=== PATIENT | male | born 1940 | race Caucasian/White ===

== ENCOUNTER → 2017-05-06 | Outpatient (CLI) | payer BC ==
[~2017-05-06] MED LIST: ASPEC81 PO; ATEN-173 PO; ENAL5TAB83 PO; GLC500 PO; PRLSR20 PO; SIMV40TA2 PO
[2017-05-06 10:04] LABS: ALT/SGPT 35 U/L (12-78); AST/SGOT 17 U/L (15-37); BLOOD UREA NITROGEN 15 mg/dl (7-18); BUN/CREATININE RATIO 15.5 (10-20); CARBON DIOXIDE 28 mmol/L (21-32); CHLORIDE 105 mmol/L (98-107); CREATININE 0.96 mg/dl (0.60-1.40); GLUCOSE 149 mg/dl (70-99); POTASSIUM 4.4 mmol/L (3.5-5.1); SODIUM 137 mmol/L (136-145)
[2017-05-06 10:07] LABS: ALB/GLOB RATIO 1.1 (0.9-2); ALKALINE PHOSPHATASE 67 U/L (45-117)
[2017-05-06 10:10] LABS: ESTIMATED AVERAGE GLUCOSE 146 mg/dl; HA1C FLAG Normal (Normal)
== END | disposition home or self-care (01) ==
LOC: C.LAB1850 07:53
PROVIDERS: ATTEND Internal Medicine
DX: E11.9 Type 2 diabetes mellitus without complications (principal)

== ENCOUNTER → 2017-11-11 | Outpatient (CLI) | payer BC ==
[2017-11-11 09:43] LABS: BASO % 0.3 %; BASO ABS # 0.02 K/uL (0-0.2); EOS % 1.5 %; HEMATOCRIT 48.4 % (42-52); IG# 0.09 K/uL (0.00-0.02); LYMPH % 17.2 %; LYMPH ABS # 1.11 K/uL (1.2-3.4); MEAN CELL VOLUME 93.6 fL (80-100); MEAN CORPUSCULAR HEMOGLOBIN 32.9 pg (25-34); MEAN CORPUSCULAR HGB CONC 35.1 g/dl (32-36); MEAN PLATELET VOLUME 10.8 fL (7.4-10.4); MONO % 9.1 %; MONO ABS # 0.59 K/uL (0.11-0.59); NEUT % 70.5 %; NEUT ABS # 4.55 K/uL (1.4-6.5); PLATELET COUNT 195 K/uL (130-400); RED CELL DISTRIBUTION WIDTH CV 13.5 % (11.5-14.5); RED CELL DISTRIBUTION WIDTH SD 46.5 fL (36.4-46.3); WHITE BLOOD COUNT 6.46 K/uL (4.8-10.8)
[2017-11-11 09:54] LABS: HEMOGLOBIN A1C 6.9 % (4.5-5.6)
[2017-11-11 10:15] LABS: ALBUMIN 3.8 gm/dl (3.4-5.0); ALKALINE PHOSPHATASE 65 U/L (45-117); ALT/SGPT 33 U/L (12-78); AST/SGOT 16 U/L (15-37); BLOOD UREA NITROGEN 16 mg/dl (7-18); CALCIUM 8.6 mg/dl (8.5-10.1); CARBON DIOXIDE 25 mmol/L (21-32); CHOLESTEROL 184 mg/dl (0-200); CREATININE 1.05 mg/dl (0.60-1.40); GLUCOSE 153 mg/dl (70-99); LDL CHOLESTEROL CALCULATED 114 mg/dl; POTASSIUM 4.2 mmol/L (3.5-5.1); SODIUM 135 mmol/L (136-145); TOTAL PROTEIN 7.2 gm/dl (6.4-8.2)
== END | disposition home or self-care (01) ==
LOC: C.LAB1850 07:47
PROVIDERS: ATTEND Internal Medicine
DX: E11.9 Type 2 diabetes mellitus without complications (principal); I10 Essential (primary) hypertension

== ENCOUNTER 2022-07-01 18:43 | Observation (INO) ==
[2022-07-01 19:07] LABS: Basophils # (auto) 0.04 K/uL (0-0.2); Basophils % (auto) 0.5 %; Eosinophils # (auto) 0.08 K/uL (0-0.50); Eosinophils % (auto) 0.9 %; Hematocrit (blood only) 48.7 % (40.1-51.0); Hemoglobin 17.3 g/dl (14.0-18.0); Immature Granulocytes % (auto) 1.1 %; Lymphocytes # (auto) 1.87 K/uL (1.2-3.4); Lymphocytes % (auto) 21.2 %; Mean Corpuscular Hemoglobin 33.3 pg (25.0-34.0); Mean Corpuscular Hgb Conc 35.5 g/dL (32.0-36.0); Mean Corpuscular Volume 93.7 fL (80.0-100.0); Mean Platelet Volume 10.2 fL (9.4-12.4); Monocytes # (auto) 0.65 K/uL (0.24-0.82); Monocytes % (auto) 7.4 %; Neutrophils % (auto) 68.9 %; Platelet Count 220 K/uL (130-400); RDW Coefficient of Variation 13.2 % (11.5-14.5); RDW Standard Deviation 45.3 fL (36.4-46.3); White Blood Count 8.84 K/ul (4.8-10.8)
[2022-07-01 19:17] LABS: Partial Thromboplastin Ratio 0.9; Partial Thromboplastin Time 25.1 Seconds (21.0-31.0); Prothrombin Time 10.7 Seconds (9.0-12.0)
[2022-07-01 19:29] LABS: Albumin Globulin Ratio 1.8 (0.9-2); Albumin Level 4.4 gm/dl (3.4-5.0); BUN Creatinine Ratio 17.4 (10-20); Bilirubin,Total 0.8 mg/dl (0.2-1.0); Calcium 9.7 mg/dl (8.5-10.1); Creatinine Clr Calc Pharmacy 52.3 ml/min; Est GFR (African American) 73.9 ml/min; Est GFR (Non-African American) 63.8 ml/min; Globulin 2.5 gm/dl (2.5-4.0); Potassium 4.3 mmol/L (3.5-5.1); Total Protein 6.9 gm/dl (6.0-8.3)
[2022-07-01 19:34] LABS: Troponin I High Sensitivity 3.3 pg/ml (0-20)
--- NOTE | 2022-07-01 19:50 | XRay Report ---
XR chest 1V portable CLINICAL HISTORY: Chest pain, nonspecific TECHNIQUE: Single frontal radiograph of the chest was obtained. Comparison: Comparison is made to chest radiograph 11/17/1999 FINDINGS: No lines and tubes are seen. Calcified aortic knob is seen. The lungs are clear. No evidence of pleur al effusion or pneumothorax. IMPRESSION: No acute chest disease. ACT 112: Negative or not required by law. Electronically signed by: Julien Kelly M.D. 07/01/2022 7:47 PM
[2022-07-01] MEDS ORDERED: LORazepam 1 MG TAB SL STA (20:47)
[2022-07-01] MEDS ORDERED: hydrALAZINE HCL 20 MG/ML VIAL IV ONE (21:48)
[2022-07-01 22:45] LABS: Influenza A virus by PCR Negative (Neg); Influenza B virus by PCR Negative (Neg); RSV by PCR Negative (Neg); SARS CoV2 RNA(COVID-19) Ceph NEGATIVE (Negative)
--- NOTE | 2022-07-01 23:01 | History & Physical Report ---
Date of Service July 01, 2022 Assessment & Plan (1) Substernal chest pain: Plan: Symptoms are atypical for angina, unlikely ACS; occurred shortly after eating and feels similar to severe previous heartburn episodes - may be due to uncontrolled GERD. Additionally was hypertensive to 181/124 and tachycardic to 110s - appears consistent with his increased anxiety which he always has in medical settings, rather than true hypertensive urgency/emergency. - EKG without ST/T changes, hsTroponin negative x2, currently asymptomatic - admit for observation on telemetry - check EKG and hsTroponin in AM - PRN EKG for chest pain - NPO at midnight for stress ECHO in AM (2) Acid reflux disease: Plan: As above, suspect uncontrolled GERD as primary cause of chest tightness. - Protonix 40mg PO daily while hospitalized - recommend increase PPI to daily at least for 4-6 weeks after discharge - defer to primary team/PCP (3) Hypertension: Plan: BP 181/124 on presentation, improved to 126/100 after Hydralazine 5mg IV x1. No other symptoms of urgency/emergency. Suspect uncontrolled HTN largely in setting of increased anxiety. - monitor closely, PRN Hydralazine ordered for SBP >180 and/or DBP >110 (4) Sinus tachycardia: Plan: Presented in sinus tachycardia 110s, improved to 90s after Ativan. Suspect 2/2 to increased anxiety in medical settings. - monitor on telemetry as stated above - repeat EKG in AM as stated above (5) Type 2 diabetes mellitus: Plan: A1c 7.0 in 04/2022. Hold Metformin, utilize SSI while hospitalized. (6) Hyperlipidemia: Plan: Diet-controlled. LDL 118 in 04/2022 but was reportedly non-fasting test. Check fasting lipids in AM Plan FEN/GI: NPO DVT Prophylaxis: Lovenox SQ Code Status: full code Disposition: med/tele History of Present Illness Chief Complaint: chest pain Primary Care Provider: Nina Moya MD Peter Arnold is an 82yo male with PMHx significant for T2DM (A1c 7.0 in 04/2022), HTN, HLD, GERD, and depression/anxiety, who presented to [facility] ED on 07/01 for acute-onset substernal chest tightness and neck tightness, with associated lightheadedness, that started at 15:30, ~20 minutes after eating tuna salad and crackers. Symptoms occurred at rest, lasted 15-20 minutes and then completely resolved without intervention. Patient does have h/o GERD and takes Omeprazole 20mg every 3-4 days when he feels heartburn symptoms; used to take it daily but started weaning down ~1 year ago. Patient is very physically active and often goes on 3 mile walks - never gets chest pain. Had a cardiac stress test "years ago" that was normal. He used to measure BP at home and usually got 150s-160s/90s-100s but stopped measuring BP ~1 year ago. Of note patient reports that he often gets anxious when going to the doctor and felt very anxious upon arrival in our ED. Denies h/o IL or heart disease. Denies family h/o IL/heart disease. He is a never smoker and denies alcohol/drug use. In the ED the patient was hypertensive to 181/124 and tachycardic to 114. EKG sinus tachycardia with PACs and without definite ST/T abnormalities. hsTroponin negative x2 (2 hours apart). Labs significant for BSG 217; otherwise CBC/CMP WNL. COVID/flu/RSV negative. CXR unremarkable. Patient received Hydralazine 5mg IV x1 and Ativan 0.5mg SL x1. He remains without chest pain, and his BP improved to 126/100 after Hydralazine. He only feels slightly anxious now after the Ativan. Allergies Allergy/AdvReac Type Severity Reaction Status Date / Time Penicillins Allergy Mild rash Verified 07/01/22 22:52 amoxicillin AdvReac Rash Verified 07/01/22 22:52 Home Medications Medication Instructions Recorded Confirmed Type cholecalciferol (vitamin D3) 50 4,000 units PO DAILY 03/23/19 07/01/22 History mcg (2,000 unit) capsule omeprazole 20 mg capsule,delayed 20 mg PO .QOD 04/09/21 07/01/22 History release blood sugar diagnostic (Feliciano #100 ea 05/06/22 07/01/22 Rx Lite Strips) enalapril maleate 20 mg tablet 20 mg PO DAILY #90 tabs 05/06/22 07/01/22 Rx metformin 500 mg tablet 500 mg PO BID #180 tabs 05/06/22 07/01/22 Rx ihenijwlyynx-uzs-nihjh acid-vit 1 tab PO DAILY 05/06/22 07/01/22 History K-lycop 400 mcg-20 mcg-370 mcg tablet (Men's 50 Plus Multivitamin) Past Med/Surg History Medical History Acid reflux disease Depression with anxiety Facet syndrome, lumbar Hyperlipidemia Inguinal hernia Reactive hypertension Tiredness Type 2 diabetes mellitus Umbilical hernia Vitamin D deficiency Surgical History No history of previous surgery Family History Mother Alzheimer disease Diabetes Brother Emphysema, unspecified Father Myocardial infarction Denies family history of Ovarian cancer Prostate cancer Breast cancer Colorectal cancer Social History (Updated 05/06/22 @ 09:39 by Margarita Obrien LPN) Smoking Status: Never smoker Second Hand Exposure: No; Hx Alcohol Use: Yes Alcohol Intake Frequency: Monthly or Less Hx Substance Use: No Preferred Language: Irish Communication Ability: Effective Visual Impairment: No Limitations Hearing Ability: Normal Ticketing Clerk Required: No Beliefs That Will Affect Care: None marital status: / Current Living Situation: Alone current occupational status: retired How many Children do You have: 1 other: 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 NAD. Cooperative. HEENT: Atraumatic, normocephalic. Pulm: CTAB A&P. -wheezes, -rales, -rhonchi. Symmetrical chest rise. No increase work of breathing. No respiratory distress. Cardiac: RRR, -mrg. Radial pulses intact and symmetrical. No LE edema. Chest: no tenderness to palpation of chest wall Abdominal: soft, non-tender, non-distended, BS x 4 Skin: warm, dry, no rash Results & Data Results & Data ([facility]) Vital Signs (Past 12 Hours) Vital Signs Pulse Pulse Resp BP BP Pulse Ox O2 Del Method 07/01/22 20:57 76 19 95 Room Air 07/01/22 20:52 78 20 181/124 H 95 Room Air 07/01/22 20:52 95 Room Air 07/01/22 18:45 114 H 20 191/97 H 95 Room Air Supervising Physician Co-Signing Physician Notes Attending addendum: I have physically seen this patient, have supervised the medical residents activities, and agree with the H&P unless as otherwise noted. Assessment and Plan: Substernal chest pain/sinus tachycardia/hypertension- The patient will be admitted to telemetry for serial cardiac enzymes, serial EKG's, cardiac rhythm monitoring and a 2-D echocardiogram with Dopplers. Continue enalapril Lopressor 5 mg IV every 4 hours. Systolic blood pressure greater than 160 Diabetes mellitus- Hold metformin Placed on Accu-Cheks before meals and at bedtime with NovoLog coverage per scale Check hemoglobin A1c Remaining orders and notations as noted Resident Activity Tracking Resident Involvement: Resident Care Provided Care Provided: Adult Hospital Medicine (1) Hypertension Hypertension type: primary hypertension Qualified Code(s): I10 - Essential (primary) hypertension
[2022-07-02] MEDS ORDERED: GLUCOSE 40% GEL 15 GM TUBE PO PRN (00:45)
[2022-07-02] MEDS ORDERED: GLUCAGON FOR INJ 1 MG VIAL SQ PRN (00:45)
[2022-07-02] MEDS ORDERED: CARBOHYDRATES FOR HYPOGLYCEMIA PO PRN (00:45)
[2022-07-02] MEDS ORDERED: DEXTROSE 50% 50 ML SYRINGE IV PRN (00:45)
[2022-07-02] MEDS ORDERED: ONDANSETRON INJ 2 MG/ML 2 ML VIAL IV PRN (00:45)
[2022-07-02] MEDS ORDERED: hydrALAZINE HCL 20 MG/ML VIAL IV PRN (00:45)
[2022-07-02] MEDS ORDERED: GLUCOSE 10 TAB/TUBE PO PRN (00:45)
[2022-07-02 05:17] LABS: BUN Creatinine Ratio 18.4 (10-20); Calcium 9.2 mg/dl (8.5-10.1); Chol HDL Ratio 5.5 (0-5); Creatinine Clr Calc Pharmacy 65.5 ml/min; Est GFR (African American) 94.5 ml/min; Est GFR (Non-African American) 81.5 ml/min; Magnesium 2.2 mg/dl (1.7-2.4); Potassium 4.1 mmol/L (3.5-5.1)
[2022-07-02] MEDS: ACETAMINOPHEN 500 MG TAB PO PRN ×2 (06:10→14:33)
[2022-07-02] MEDS ORDERED: ENOXAPARIN INJ 40 MG/0.4 ML SYR SQ SCH (09:00)
[2022-07-02] MEDS ORDERED: PANTOprazole 40 MG TAB PO SCH (09:00)
[2022-07-02] MEDS ORDERED: ENALAPRIL MALEATE 10 MG TAB PO SCH (09:00)
[2022-07-02] MEDS: INSULIN ASPART PER UNIT SC SCH ×2 (10:05→13:47)
--- NOTE | 2022-07-02 14:57 | XCELERA ---
[id number]
--- NOTE | 2022-07-02 17:11 | Discharge Summary ---
Discharge Summary Date of Service July 02, 2022 Admission HPI Per Admitting Provider Peter Arnold is an 82yo male with PMHx significant for T2DM (A1c 7.0 in 04/2022), HTN, HLD, GERD, and depression/anxiety, who presented to [facility] ED on 07/01 for acute-onset substernal chest tightness and neck tightness, with associated lightheadedness, that started at 15:30, ~20 minutes after eating tuna salad and crackers. Symptoms occurred at rest, lasted 15-20 minutes and then completely resolved without intervention. Patient does have h/o GERD and takes Omeprazole 20mg every 3-4 days when he feels heartburn symptoms; used to take it daily but started weaning down ~1 year ago. Patient is very physically active and often goes on 3 mile walks - never gets chest pain. Had a cardiac stress test "years ago" that was normal. He used to measure BP at home and usually got 150s-160s/90s-100s but stopped measuring BP ~1 year ago. Of note patient reports that he often gets anxious when going to the doctor and felt very anxious upon arrival in our ED. Denies h/o AL or heart disease. Denies family h/o AL/heart disease. He is a never smoker and denies alcohol/drug use. In the ED the patient was hypertensive to 181/124 and tachycardic to 114. EKG sinus tachycardia with PACs and without definite ST/T abnormalities. hsTroponin negative x2 (2 hours apart). Labs significant for BSG 217; otherwise CBC/CMP WNL. COVID/flu/RSV negative. CXR unremarkable. Patient received Hydralazine 5mg IV x1 and Ativan 0.5mg SL x1. He remains without chest pain, and his BP improved to 126/100 after Hydralazine. He only feels slightly anxious now after the Ativan. Admission Exam Per Admitting Provider General: A&Ox3. NAD. Cooperative. HEENT: Atraumatic, normocephalic. Pulm: CTAB A&P. -wheezes, -rales, -rhonchi. Symmetrical chest rise. No increase work of breathing. No respiratory distress. Cardiac: RRR, -mrg. Radial pulses intact and symmetrical. No LE edema. Chest: no tenderness to palpation of chest wall Abdominal: soft, non-tender, non-distended, BS x 4 Skin: warm, dry, no rash Principal Dx & Hospital Course #1 = Principal Diagnosis (1) Substernal chest pain: 82 yo M presented for substernal chest pain and admitted for cardiac evaluation and observation. Chest pain: Presented with substernal chest pain, atypical in nature with differential including GERD. Troponin trend negative, EKG without evidence of ST/T wave changes. Stress echo today normal. Has not been taking PPI daily, advised taking daily for the next 4 weeks or so and following up with PCP. No chest pain on my interview today. No evidence of ACS, patient discharged to home. (2) Acid reflux disease: see above Continue daily omeprazole (3) Type 2 diabetes mellitus: Continue metformin. (4) Hyperlipidemia: Cotninue statin (5) Hypertension: Continue enalapril. Plan home with self care Discharge Exam Constitutional WD/WN, vitals as above Respiratory normal respiratory effort, lungs clear to auscultation Cardiovascular RRR, no murmur, no edema Gastrointestinal (Abdomen) normal bowel sounds, soft, nontender, no hepatosplenomegaly Updated Medication List Medication Instructions Recorded Confirmed Type cholecalciferol (vitamin D3) 50 4,000 units PO DAILY 03/23/19 07/01/22 History mcg (2,000 unit) capsule omeprazole 20 mg capsule,delayed 20 mg PO .QOD 04/09/21 07/01/22 History release blood sugar diagnostic (FreeStyle #100 ea 05/06/22 07/01/22 Rx Lite Strips) enalapril maleate 20 mg tablet 20 mg PO DAILY #90 tabs 05/06/22 07/01/22 Rx metformin 500 mg tablet 500 mg PO BID #180 tabs 05/06/22 07/01/22 Rx okeqmzfovyem-con-qcspw acid-vit 1 tab PO DAILY 05/06/22 07/01/22 History K-lycop 400 mcg-20 mcg-370 mcg tablet (Men's 50 Plus Multivitamin) Hospital Stay Data Consultations 07/01/22 22:34 ED Decision to Admit Stat Discharge Instructions Given to Patient (Per Discharging Provider) You were admitted to the hospital for evaluation of chest pain. You had a stress test of your heart which was normal. Your EKG and your heart strain labs were all normal as well. You were felt to be safe for discharge with the following recommendations: It is felt that some of your symptoms were due to reflux. Please take your omeprazole daily for the next 4 weeks to see if your reflux improves. Follow up with your family doctor after hospitalization, in the next 2 weeks or so. Your medications were otherwise not changed this admission. If you have any urgent medical concerns and you cannot reach your family doctor, or you are urgently concerned about your health, please seek urgent medical attention. Total Time Total Time Spent Total Time Spent (In Minutes): 40 minutes Coding Level of Care Code HOSP INP/OBS DISCH >30 MIN Diagnoses Substernal chest pain R07.2 Acid reflux disease K21.9 Type 2 diabetes mellitus E11.9 Hyperlipidemia E78.5 Hypertension I10 Hypertension type: primary hypertension
--- NOTE | 2022-07-02 21:44 | Electrocardiogram Report ---
Test Reason : Blood Pressure : / mmHG Vent. Rate : 105 BPM Atrial Rate : 105 BPM P-R Int : 150 ms QRS Dur : 100 ms QT Int : 350 ms P-R-T Axes : 047 047 058 degrees QTc Int : 462 ms Sinus tachycardia with Premature ventricular complexes Nonspecific ST abnormality Abnormal ECG When compared with ECG of 17-NOV-2007 06:42, Nonspecific T wave abnormality now evident in Inferior leads Confirmed by Robin Blood ([id number]) on 07/02/2022 9:44:21 PM Referred By: REFERRED SELF Confirmed By:Robin Blood
--- NOTE | 2022-07-03 00:06 | Billing Data ---
Date of Service July 03, 2022 Coding Level of Care Code INT OBSERVATION CARE 70M LVL 3
--- NOTE | 2022-07-03 05:17 | Electrocardiogram Report ---
Test Reason : Blood Pressure : / mmHG Vent. Rate : 088 BPM Atrial Rate : 088 BPM P-R Int : 148 ms QRS Dur : 100 ms QT Int : 380 ms P-R-T Axes : 039 040 069 degrees QTc Int : 459 ms Sinus rhythm with occasional Premature ventricular complexes Otherwise normal ECG When compared with ECG of 01-JUL-2022 18:51, Premature ventricular complexes are now Present Confirmed by Robin Blood ([id number]) on 07/03/2022 5:16:56 AM Referred By: REFERRED SELF Confirmed By:Robin Blood
--- NOTE | 2022-07-06 15:06 | Emergency Department Note ---
Impression & Plan Hypertension, Substernal chest pain ED Provider Note CHIEF COMPLAINT: [] HISTORY OF PRESENT ILLNESS: This [] patient presents to the emergency department [] REVIEW OF SYSTEMS: A review of systems was performed with positives and pertinent negatives listed in the history of present illness. 10 systems were reviewed and are otherwise negative. ALLERGIES: see below MEDICATIONS: see below PMH: see below SOCIAL HISTORY: see below DDx: [] PHYSICAL EXAM: Vital signs reviewed. General: Well-appearing, in no significant distress. HEENT: No scleral icterus, PERRLA, neck supple. Atraumatic. Cardiovascular: Regular rate and rhythm, no extra sounds. Pulmonary: Clear to auscultation bilaterally, normal work of breathing. Abdomen: Soft, nontender, nondistended, positive bowel sounds. Musculoskeletal: Atraumatic, no peripheral edema. Neurologic: Patient awake alert and oriented x 3, speech is clear Skin: Warm, dry, no rash EMERGENCY DEPARTMENT COURSE/MDM: [] MONITORING: An order for cardiac monitoring was placed and the patient is noted to be in a [] at [] beats per minute. RADIOLOGY: EKG: DISPOSITION: Past Med/Surg History Medical History Acid reflux disease Depression with anxiety Facet syndrome, lumbar Hyperlipidemia Inguinal hernia Reactive hypertension Tiredness Type 2 diabetes mellitus Umbilical hernia Vitamin D deficiency Surgical History No history of previous surgery Family History Mother Alzheimer disease Diabetes Brother Emphysema, unspecified Father Myocardial infarction Denies family history of Ovarian cancer Prostate cancer Breast cancer Colorectal cancer Social History (Updated 05/06/22 @ 09:39 by Margarita Obrien LPN) Smoking Status: Never smoker Second Hand Exposure: No; Hx Alcohol Use: Yes Alcohol Intake Frequency: Monthly or Less Hx Substance Use: No Preferred Language: Italian Communication Ability: Effective Visual Impairment: No Limitations Hearing Ability: Normal Lombardi Developer Required: No Beliefs That Will Affect Care: None marital status: / Current Living Situation: Alone current occupational status: retired How many Children do You have: 1 other: 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 Safe at Home: Yes Childhood Exposure to Second-Hand Smoke: Yes caffeine: Yes Dental Care, Regularly: Yes Physical Activity Frequency: Daily Seatbelt Use: always Sunscreen Use: No Assistive Devices: None Allergies Allergies Allergy/AdvReac Type Severity Reaction Status Date / Time Penicillins Allergy Mild rash Verified 07/01/22 22:52 amoxicillin AdvReac Rash Verified 07/01/22 22:52 Home Meds Home Medications Medication Instructions Recorded Confirmed cholecalciferol (vitamin D3) 50 4,000 units PO DAILY 03/23/19 07/01/22 mcg (2,000 unit) capsule omeprazole 20 mg capsule,delayed 20 mg PO .QOD 04/09/21 07/01/22 release jgdwmnfnueqz-kgk-rkheb acid-vit 1 tab PO DAILY 05/06/22 07/01/22 K-lycop 400 mcg-20 mcg-370 mcg tablet (Men's 50 Plus Multivitamin) Previous Rx's Medication Instructions Recorded blood sugar diagnostic (FreeStyle #100 ea 05/06/22 Lite Strips) enalapril maleate 20 mg tablet 20 mg PO DAILY #90 tabs 05/06/22 metformin 500 mg tablet 500 mg PO BID #180 tabs 05/06/22 Results & Data (ED) Laboratory Data Result diagrams: 07/01/22 18:55 07/02/22 04:15 Lab Results 07/01/22 07/01/22 07/01/22 Range/Units 18:55 18:55 18:55 WBC 8.84 (4.8-10.8) K/ul RBC 5.20 (4.63-6.08) M/uL Hgb 17.3 (14.0-18.0) g/dl Hct 48.7 (40.1-51.0) % MCV 93.7 (80.0-100.0) fL MCH 33.3 (25.0-34.0) pg MCHC 35.5 (32.0-36.0) g/dL RDW Std Deviation 45.3 (36.4-46.3) fL RDW Coeff of Pankaj 13.2 (11.5-14.5) % Plt Count 220 (130-400) K/uL MPV 10.2 (9.4-12.4) fL Immature Gran % (Auto) 1.1 % Neut % (Auto) 68.9 % Lymph % (Auto) 21.2 % [place] % (Auto) 7.4 % Eos % (Auto) 0.9 % Baso % (Auto) 0.5 % Neut # (Auto) 6.10 (1.4-6.5) K/uL Lymph # (Auto) 1.87 (1.2-3.4) K/uL [place] # (Auto) 0.65 (0.24-0.82) K/uL Eos # (Auto) 0.08 (0-0.50) K/uL Baso # (Auto) 0.04 (0-0.2) K/uL Immature Gran # (Auto) 0.10 H (0.00-0.02) K/uL PT 10.7 (9.0-12.0) Seconds INR 1.0 (0.9-1.1) APTT 25.1 (21.0-31.0) Seconds PTT Ratio 0.9 Sodium 138 (136-145) mmol/L Potassium 4.3 (3.5-5.1) mmol/L Chloride 102 (98-107) mmol/L Carbon Dioxide 26 (21-32) mmol/L Anion Gap 10 (3-11) BUN 19 (6-23) mg/dl Creatinine 1.09 (0.6-1.4) mg/dl Est Cr Clr Drug Dosing 52.3 ml/min Est GFR ( Amer) 73.9 ml/min Est GFR (Non-Af Amer) 63.8 ml/min BUN/Creatinine Ratio 17.4 (10-20) Glucose 217 H (70-99(Fasting)) mg/dl Calcium 9.7 (8.5-10.1) mg/dl Magnesium (1.7-2.4) mg/dl Total Bilirubin 0.8 (0.2-1.0) mg/dl AST 14 (13-39) U/L ALT 17 (7-52) U/L Alkaline Phosphatase 55 (34-104) U/L Troponin I High Sens 3.3 (0-20) pg/ml Total Protein 6.9 (6.0-8.3) gm/dl Albumin 4.4 (3.4-5.0) gm/dl Globulin 2.5 (2.5-4.0) gm/dl Albumin/Globulin Ratio 1.8 (0.9-2) SARS-CoV-2 (PCR) (Negative) Influenza Type A (PCR) (Neg) Influenza Type B (PCR) (Neg) RSV (RT-PCR) (Neg) 07/01/22 07/01/22 07/01/22 Range/Units 21:49 21:58 21:58 WBC (4.8-10.8) K/ul RBC (4.63-6.08) M/uL Hgb (14.0-18.0) g/dl Hct (40.1-51.0) % MCV (80.0-100.0) fL MCH (25.0-34.0) pg MCHC (32.0-36.0) g/dL RDW Std Deviation (36.4-46.3) fL RDW Coeff of Pankaj (11.5-14.5) % Plt Count (130-400) K/uL MPV (9.4-12.4) fL Immature Gran % (Auto) % Neut % (Auto) % Lymph % (Auto) % [place] % (Auto) % Eos % (Auto) % Baso % (Auto) % Neut # (Auto) (1.4-6.5) K/uL Lymph # (Auto) (1.2-3.4) K/uL [place] # (Auto) (0.24-0.82) K/uL Eos # (Auto) (0-0.50) K/uL Baso # (Auto) (0-0.2) K/uL Immature Gran # (Auto) (0.00-0.02) K/uL PT (9.0-12.0) Seconds INR (0.9-1.1) APTT (21.0-31.0) Seconds PTT Ratio Sodium (136-145) mmol/L Potassium (3.5-5.1) mmol/L Chloride (98-107) mmol/L Carbon Dioxide (21-32) mmol/L Anion Gap (3-11) BUN (6-23) mg/dl Creatinine (0.6-1.4) mg/dl Est Cr Clr Drug Dosing ml/min Est GFR ( Amer) ml/min Est GFR (Non-Af Amer) ml/min BUN/Creatinine Ratio (10-20) Glucose (70-99(Fasting)) mg/dl Calcium (8.5-10.1) mg/dl Magnesium 1.8 (1.7-2.4) mg/dl Total Bilirubin (0.2-1.0) mg/dl AST (13-39) U/L ALT (7-52) U/L Alkaline Phosphatase (34-104) U/L Troponin I High Sens 3.3 (0-20) pg/ml Total Protein (6.0-8.3) gm/dl Albumin (3.4-5.0) gm/dl Globulin (2.5-4.0) gm/dl Albumin/Globulin Ratio (0.9-2) SARS-CoV-2 (PCR) NEGATIVE (Negative) Influenza Type A (PCR) Negative (Neg) Influenza Type B (PCR) Negative (Neg) RSV (RT-PCR) Negative (Neg) Administered Medications Discontinued Medications Acetaminophen (Acetaminophen 500 Mg Tab) 1,000 mg PO Q8H PRN PRN Reason: Pain or Fever Stop: 08/01/22 00:44 Last Admin: 07/02/22 14:33 Dose: 1,000 mg Documented By: Admin: 07/02/22 06:10 Dose: 1,000 mg Documented By: Enalapril Maleate (Enalapril Maleate 10 Mg Tab) 20 mg PO DAILY [facility] Stop: 08/01/22 08:59 Last Admin: 07/02/22 08:38 Dose: 20 mg Documented By: THIAGO Enoxaparin Sodium (Enoxaparin Inj 40 Mg/0.4 Ml Syr) 40 mg SQ Q24H [facility] Stop: 08/01/22 08:59 Last Admin: 07/02/22 08:40 Dose: Not Given Documented By: THIAGO Hydralazine HCl (Hydralazine Hcl 20 Mg/Ml Vial) 5 mg IV NOW ONE Stop: 07/01/22 21:49 Last Admin: 07/01/22 21:54 Dose: 5 mg Documented By: DANE Insulin Aspart (Insulin Aspart Per Unit) 0 units SC ACHS [facility] Stop: 08/01/22 07:29 Last Admin: 07/02/22 13:47 Dose: Not Given Documented By: TEREZA Co-signed By: OLLIE Admin: 07/02/22 10:05 Dose: Not Given Documented By: THIAGO Co-signed By: MMZ Lorazepam (Lorazepam 1 Mg Tab) 0.5 mg SL NOW STA Stop: 07/01/22 20:48 Last Admin: 07/01/22 20:52 Dose: 0.5 mg Documented By: DANE Pantoprazole Sodium (Pantoprazole 40 Mg Tab) [facility] [place] Stop: 08/01/22 08:59 Last Admin: 07/02/22 08:38 Dose: 40 mg Documented By: MI Discharge Plan Visit Data Chief Complaint: Chest Pain Stated Complaint: CHEST PAIN,LOSS OF BALANCE, NUMBNESS IN BODY ED Provider: Yeni Schuler Discharge Problem: Hypertension, Substernal chest pain Patient Disposition: Admitted As Inpatient Condition: Good Discharge Instructions Interventions: ED Discharge Assessment Last Done: 07/02/22 00:46 : Hypertension Qualifiers: Hypertension type: primary hypertension Qualified Code(s): I10 - Essential (primary) hypertension
== END 2022-07-02 00:47 | disposition home or self-care (01) ==
LOC: EDINP 18:43 → ED 18:43 → SUATTDRO 23:06 → EDINP 07-02 00:46